=== PATIENT | female | born 1995 | race Caucasian/White ===

== ENCOUNTER 2016-12-31 07:16 | Emergency (ER) | payer OTHER ==
[2016-12-31 08:00] LABS: HEMOGLOBIN 14.3 gm/dl (12.3-15.3); RED BLOOD COUNT 4.97 M/UL (4.00-5.10); WHITE BLOOD COUNT 8.7 K/UL (4.5-11.0)
[2016-12-31 08:24] LABS: BUN/CREATININE RATIO 17 (0-10)
[2017-01-04] MEDS ORDERED: BC IMPLANT (10:35)
[2017-01-04] MEDS ORDERED: METRONIDAZOLE500 MG PO (10:36)
[2017-01-04] MEDS ORDERED: CIPRO500 MG PO (10:36)
[2017-01-04] MEDS ORDERED: NORCO 7.5-3251 EACH PO (15:14)
== END 2016-12-31 14:25 | disposition home or self-care (01) ==
LOC: ER1 07:16
PROVIDERS: Emergency Medicine
DX: R10.11 Right upper quadrant pain (principal); R10.31 Right lower quadrant pain; R79.89 Other specified abnormal findings of blood chemistry; K80.20 Calculus of gallbladder without cholecystitis without obstruction
CPT/HCPCS: 36415; 76705; 80053; 81001; 82150; 83690; 84703; 85025; 96361; 96374; 96375; 99284; J1335; J2270; J2405; J7050

== ENCOUNTER 2017-01-03 17:44 | Emergency (ER) | payer OTHER ==
[2017-01-04] MEDS ORDERED: BC IMPLANT (10:35)
[2017-01-04] MEDS ORDERED: CIPRO500 MG PO (10:36)
[2017-01-04] MEDS ORDERED: METRONIDAZOLE500 MG PO (10:36)
[2017-01-04] MEDS ORDERED: NORCO 7.5-3251 EACH PO (15:14)
== END 2017-01-03 22:30 | disposition left against medical advice (07) ==
LOC: ER1 17:44
DX: Z53.21 Procedure and treatment not carried out due to patient leaving prior to being seen by health care provider (principal)

== ENCOUNTER → 2017-01-04 | Day surgery (SDC) | payer OTHER ==
[~2017-01-04] VITALS: Ht 167.6 cm; Wt 77.1 kg
[~2017-01-04] MED LIST: BC IMPLANT; CIPRO500 MG PO; METRONIDAZOLE500 MG PO; NORCO 7.5-3251 EACH PO
== END | disposition home or self-care (01) ==
LOC: OR 09:59
PROVIDERS: Surgery
PROC: BF13YZZ Fluoroscopy of Gallbladder and Bile Ducts using Other Contrast (ICD-10-PCS; 2017-01-04)
PROC: 0FT44ZZ Resection of Gallbladder, Percutaneous Endoscopic Approach (ICD-10-PCS; principal; 2017-01-04 12:05)
DX: K80.10 Calculus of gallbladder with chronic cholecystitis without obstruction (principal); Z82.49 Family history of ischemic heart disease and other diseases of the circulatory system; Z79.2 Long term (current) use of antibiotics; Z79.899 Other long term (current) drug therapy
CPT/HCPCS: 47531; 84703; J0295; J1200; J1885; J2250; J2405; J2710; J3010; J7030; J7050; J7120; Q9962

== ENCOUNTER 2017-03-31 12:11 | Emergency (ER) | payer OTHER | END 2017-03-31 14:53 | disposition left against medical advice (07) | LOC: ER1 12:11 | DX: Z53.21 Procedure and treatment not carried out due to patient leaving prior to being seen by health care provider (principal) ==